=== PATIENT | female | born 1940 | race Caucasian/White ===

== ENCOUNTER 2016-12-27 16:54 | Emergency (ER) | payer MEDICARE, OTHER ==
[2016-12-27] MEDS ORDERED: HYDROcod/ACETAM 5/325 MG TABLET PO STA (17:11)
--- NOTE | 2016-12-27 17:14 | ED Physician Documentation ---
History of Present Illness - Stated complaint Stated Complaint: L KNEE PAIN - Chief complaint Chief Complaint: Ext Problem - History obtained from History obtained from: Patient, Family - History of Present Illness Timing: How many days ago (3) Pain level max: 9 Pain level now: 9 Improved by: rest Worsened by: walking - Additonal information Additional information: Patient is a 76-year-old female with left knee pain for the past 3 days. Worse with walking. Better with rest and ice. had similar symptoms approximately 10 years ago when she was in [place] and was told she needed a knee replacement. has not had any issues with the knee since that time. Has been taking Aleve without relief. Does not use a cane or walker. Does not recall any recent injuries. Review of Systems Constitutional: denies: Fever, Chills Ears: denies: Ear pain Nose: denies: Rhinorrhea / runny nose, Congestion Cardiac: denies: Chest pain / pressure Respiratory: denies: Cough GI: denies: Abdominal Pain, Nausea, Vomiting, Diarrhea Skin: denies: Rash Musculoskeletal: denies: Neck pain, Back pain Neurologic: denies: Headache PD PAST MEDICAL HISTORY - Past Medical History Past Medical History: Yes Respiratory: Other GI: GERD Other Past Medical History: PE, RSD - Past Surgical History Past Surgical History: Yes Derm: Skin cancer surgery - Present Medications Home Medications: Ambulatory Orders Medication Instructions Recorded Confirmed Aspirin 81 mg PO DAILY 12/27/16 12/27/16 Hydrocodone/Acetaminophen 1 - 2 each PO Q6H PRN #20 tablet 12/27/16 [Hydrocodon-Acetaminophen 5-325] Pantoprazole [Protonix] 40 mg PO BID 12/27/16 12/27/16 - Allergies Allergies/Adverse Reactions: Allergies Allergy/AdvReac Type Severity Reaction Status Date / Time ampicillin Allergy Rash Verified 12/27/16 16:58 clindamycin AdvReac Nausea Verified 12/27/16 16:58 - Social History Does the pt smoke?: No Smoking Status: Never smoker PD ED PE NORMAL - Vitals Vital signs reviewed: Yes - General General: Alert and oriented X 3, No acute distress, Well developed/nourished - HEENT HEENT: PERRL, Moist mucous membranes - Neck Neck: Supple, no meningeal sign - Cardiac Cardiac: RRR, Strong equal pulses - Respiratory Respiratory: No respiratory distress, Clear bilaterally - Abdomen Abdomen: Soft, Non tender, Non distended - Derm Derm: Warm and dry - Extremities Extremities: No deformity, No tenderness to palpate, Other (L knee - limited ROM 2/2 pain. mild swelling, no bony tenderness. no erythema, no warmth. NVI. ACL, MCL, PCL, LCL are intact.) - Neuro Neuro: Alert and oriented X 3 - Psych Psych: Normal mood, Normal affect Results - Vitals Vitals: Vital Signs - 24 hr 12/27/16 16:56 Temperature 36.7 C Heart Rate 109 H Respiratory 16 Rate Blood Pressure 124/70 O2 Saturation 98 Oxygen O2 Source Room air Departure - Departure Disposition: Home, Self Care Clinical Impression: Osteoarthritis Qualifiers: Osteoarthritis location: knee Osteoarthritis type: unspecified Laterality: left Qualified Code(s): M17.12 - Unilateral primary osteoarthritis, left knee Condition: Good Instructions: ED Degenerative Joint Disease Follow-Up: your,doctor in 1 week for further eval [Other] Prescriptions: Hydrocodone/Acetaminophen [Hydrocodon-Acetaminophen 5-325] 1 - 2 each PO Q6H PRN #20 tablet PRN Reason: pain Comments: Return if you worsen. Use the walker to help you get around. Elevate and ice your leg. You have severe arthritis in the left knee and will likely need a knee replacement when you return home. Do not drink alcohol or drive while on narcotic pain medicine. Note that many narcotic pain relievers also contain tylenol/acetaminophen. Please ensure that your total dose of acetaminophen from all sources does not exceed 3 grams (3000mg) per day. You may constipated on this medication, take a stool softener such as "Colace" twice a day while you are on it. Also recommend a rteb-rzw-erwfami laxative such as senna or MiraLAX any day that you do not have a bowel movement. If you received narcotic pain medication in the emergency department, do not drive or operate machinery for the next 24 hours.
[2016-12-27] MEDS ORDERED: HYDROcod/ACETAM 5/325 MG TABLET ONE (17:16)
--- NOTE | 2016-12-27 18:13 | XRAY Preliminary Report ---
Exam: XR Knee 3 View LT IMPRESSION: 1. Tricompartment left knee arthritis most severely affecting the medial compartment. 2. No dislocation. Moderate knee joint effusion. 3. No fracture. [facility] SITE ID: [id number]
--- NOTE | 2016-12-27 18:21 | XRAY Report ---
EXAM: LEFT KNEE RADIOGRAPHY EXAM DATE: 12/27/2016 06:07 p.m. CLINICAL HISTORY: Left knee pain, no known injury. COMPARISON: None. TECHNIQUE: 3 views. FINDINGS: Bones: Normal. No fractures or bone lesions. Joints: Marked left medial, mild to moderate left lateral and mild left patellofemoral compartment reji int space narrowing, osteophytosis with subchondral sclerosis. Chondrocalcinosis is noted. Moderate k nee joint effusion. No dislocation. Soft Tissues: Normal. No soft tissue swelling. IMPRESSION: 1. Tricompartment left knee arthritis most severely affecting the medial compartment. 2. No dislocation. Moderate knee joint effusion. 3. No fracture. [facility] Referring Provider Line: [phone] SITE ID: [id number]
[2016-12-27] MEDS ORDERED: DEXAMETHASONE 10 MG/ML VIAL PO STA (18:29)
[2016-12-27] MEDS ORDERED: DEXAMETHASONE 10 MG/ML VIAL ONE (18:43)
[2016-12-27 19:02] VITALS: BP 107/68
[2016-12-27] MEDS ORDERED: HYDROcod/ACET 5/325 Prepack 6 PO ONE ×2 (19:02→19:09)
== END 2016-12-27 19:18 | disposition home or self-care (01) ==
LOC: ED 16:54
DX: M17.12 Unilateral primary osteoarthritis, left knee (principal); K21.9 Gastro-esophageal reflux disease without esophagitis; Z86.711 Personal history of pulmonary embolism; Z79.82 Long term (current) use of aspirin
CPT/HCPCS: 73562; 99283; A9270

== ENCOUNTER 2018-08-12 11:32 | Outpatient (CLI) | payer MEDICARE, OTHER ==
[2018-08-12] MEDS ORDERED: IOVERSOL 320 100 ML VIAL IVP ONE ×2 (11:50→11:56)
--- NOTE | 2018-08-12 15:56 | CT Report ---
Reason: INTRA-ABDOMINAL AND PELVIC SWELLING,MASS AND LUMP, Procedure Date: 08/12/2018 Accession Number: [id number] / [id number] Procedure: CT - Abdomen/Pelvis W CPT Code: FULL RESULT: EXAM: CT ABDOMEN AND PELVIS EXAM DATE: 08/12/2018 01:35 PM. CLINICAL HISTORY: Intra-abdominal and pelvic swelling, mass and lump. COMPARISONS: None. TECHNIQUE: Routine helical CT imaging was performed through the abdomen and pelvis. IV contrast: 100 mL Optiray 320. Enteric contrast: Yes. Reconstructions: Coronal and sagittal. In accordance with CT protocol optimization, one or more of the following dose reduction techniques were utilized for this exam: automated exposure control, adjustment of mA and/or KV based on patient size, or use of iterative reconstructive technique. FINDINGS: Lung Bases: Hiatal hernia. Liver: Normal. No masses. Gallbladder/Bile Ducts: Prominence of the extrahepatic biliary ductal system as well as of the pancreatic duct without definite mass identified. No evidence of cholecystitis. Spleen: Splenule. Variant of normal. Pancreas: Prominent pancreatic duct as described above. No definite mass detected. Suggestion of pancreatic divisum. Adrenal Glands: Normal. Kidneys: Normal. No masses or hydronephrosis. Peritoneal Cavity/Bowel: Diverticulosis without diverticulitis, pancolonic. No free fluid, free air or adenopathy. No masses or acute inflammatory process. The appendix is well visualized and normal. Pelvic Organs: Markedly distended urinary bladder. Vasculature: No aneurysms or other significant abnormality. Bones: No aggressive osseous lesion. Other: None. IMPRESSION: Marked distention of the urinary bladder. Hiatal hernia. Pancolonic diverticulosis without focal diverticulitis detected. Prominence of the extrahepatic biliary system and possible pancreas divisum without definite mass detected. Recommendations: Correlate bladder distention to postvoid residual and clinical symptoms. Correlate prominence of the extrahepatic biliary system to laboratory values including a lipase and alkaline phosphatase to determine whether MRI with and without contrast with MRCP is warranted for workup. [facility]
== END 2018-08-12 11:33 | disposition home or self-care (01) ==
LOC: DI 11:32
PROVIDERS: ATTEND Nurse Practitioner Family
DX: N32.89 Other specified disorders of bladder (principal); R19.00 Intra-abdominal and pelvic swelling, mass and lump, unspecified site; K44.9 Diaphragmatic hernia without obstruction or gangrene; K57.30 Diverticulosis of large intestine without perforation or abscess without bleeding
CPT/HCPCS: 74177; Q9967

== ENCOUNTER 2018-08-24 14:09 | Outpatient (CLI) | payer MEDICARE, OTHER ==
--- NOTE | 2018-08-24 15:17 | Ultrasound Report ---
Reason: PAIN OF TOE OF LEFT FOOT,PAIN IN LEFT LOWER L, Procedure Date: 08/24/2018 Accession Number: [id number] / [id number] Procedure: US - Duplex Ext Veins Left CPT Code: FULL RESULT: EXAM: LEFT LOWER EXTREMITY VENOUS ULTRASOUND. EXAM DATE: 08/24/2018 03:06 PM. CLINICAL HISTORY: Pain of toe of left foot, pain in left lower leg. COMPARISON: None. TECHNIQUE: Real-time sonographic vascular imaging was performed by the automobile mechanic through the lower extremity utilizing both color-flow and Doppler spectral analysis. Multiple medicare sales representative static images were saved for review. FINDINGS: Common Femoral Vein (CFV): Normal. CFV-GSV Junction: Normal. Profunda Femoral Vein (PFV): Normal. Femoral Vein (FV) Prox: Normal. Femoral Vein (FV) Mid: Normal. Femoral Vein (FV) Dist: Normal. Popliteal Vein: Nonocclusive thrombus. Posterior Tibial Veins: Normal. Peroneal Veins: Not well seen. Other: None. IMPRESSION: Nonocclusive thrombus is seen within the popliteal vein. [facility] The call report notification system was initiated by Dr. Kostas Hutchinson at 03:16 PM on 08/24/2018. The above call report findings were discussed with Dr Knapp by Dr. Kostas Hutchinson at 03:24 PM on 08/24/2018.
--- NOTE | 2018-08-25 10:15 | XRAY Report ---
Reason: PAIN OF TOE OF LEFT FOOT,PAIN IN LEFT LOWER L, Procedure Date: 08/24/2018 Accession Number: [id number] / [id number] Procedure: XR - Foot 3 View LT CPT Code: FULL RESULT: EXAM: LEFT FOOT RADIOGRAPHY EXAM DATE: 08/24/2018 03:29 PM. CLINICAL HISTORY: Pain of toe of left foot, pain in left lower leg. COMPARISON: None. TECHNIQUE: 3 views. FINDINGS: Bones: The bones are qualitatively osteopenic; this limits evaluation for underlying fractures or masses. Intraarticular fracture of the distal aspect of the proximal fifth phalanx, minimally displaced. Joints: Normal. No subluxations. Soft Tissues: Calcifications of the Achilles tendon are partially imaged. IMPRESSION: Osteopenia with little toe fracture. [facility]
== END 2018-08-24 14:10 | disposition home or self-care (01) ==
LOC: DI 14:09
PROVIDERS: ATTEND Nurse Practitioner Family
DX: I82.432 Acute embolism and thrombosis of left popliteal vein (principal); M84.478A Pathological fracture, left toe(s), initial encounter for fracture; M85.872 Other specified disorders of bone density and structure, left ankle and foot

== ENCOUNTER 2019-02-04 09:47 | Outpatient (CLI) | payer MEDICARE, OTHER | END 2019-02-04 09:48 | disposition home or self-care (01) | LOC: DI 09:47 | DX: Z12.31 Encounter for screening mammogram for malignant neoplasm of breast (principal) | CPT/HCPCS: 77063; 77067 ==

== ENCOUNTER 2019-04-12 19:12 | Outpatient (CLI) | payer MEDICARE, OTHER ==
--- NOTE | 2019-04-12 21:05 | Ultrasound Report ---
Reason: PAIN, SWELLING, HX OF DVT Procedure Date: 04/12/2019 Accession Number: [id number] / [id number] Procedure: US - Duplex Ext Veins Left CPT Code: Addended Final Report FULL RESULT: EXAM: LEFT LOWER EXTREMITY VENOUS ULTRASOUND EXAM DATE: 04/12/2019 07:41 PM. CLINICAL HISTORY: PAIN, SWELLING, HX OF DVT. COMPARISON: DUPLEX EXT VEINS LEFT 08/24/2018 2:16 PM. TECHNIQUE: Real-time sonographic vascular imaging was performed by the pattern drum maker through the lower extremity utilizing both color-flow and Doppler spectral analysis. Multiple client representative static images were saved for review. FINDINGS: Common Femoral Vein (CFV): Normal. CFV-GSV Junction: Normal. Profunda Femoral Vein (PFV): Normal. Femoral Vein (FV) Prox: Normal. Femoral Vein (FV) Mid: Normal. Femoral Vein (FV) Dist: Normal. Popliteal Vein: Normal. Posterior Tibial Veins: Not identified. Peroneal Veins: Not identified. Contralateral Side CFV: Normal. Other: Nonocclusive clot and greater saphenous vein in a small segment above the knee. Occlusive thrombosis in the greater saphenous vein below the knee to the mid calf. Likely 3.8 cm popliteal cyst at the posterior aspect of the left knee. IMPRESSION: Thrombosis of the greater saphenous vein. [facility] The call report notification system was initiated by Dr. Leonardo Green at 09:04 PM on 04/12/2019. ADDENDUM: 04/12/19 21:36 The above call report findings were discussed with Dr Knapp by Dr. Leonardo Green at 09:08 PM on 04/12/2019.
== END 2019-04-12 19:13 | disposition home or self-care (01) ==
LOC: DI 19:12
PROVIDERS: ATTEND Nurse Practitioner Family
DX: I82.812 Embolism and thrombosis of superficial veins of left lower extremity (principal)

== ENCOUNTER 2019-05-16 09:28 | Outpatient (CLI) | payer MEDICARE, OTHER ==
--- NOTE | 2019-05-16 13:12 | MRI Report ---
Reason: BILATERAL SHOULDER PAIN Procedure Date: 05/16/2019 Accession Number: [id number] / [id number] Procedure: MRI - Shoulder RT W/O CPT Code: Final Report FULL RESULT: EXAM: RIGHT SHOULDER MRI WITHOUT CONTRAST EXAM DATE: 05/16/2019 10:06 AM. CLINICAL HISTORY: Bilateral shoulder pain. COMPARISON: None. TECHNIQUE: Multiplanar, multisequence T1-weighted and fluid-sensitive sequences of the shoulder without contrast. Other: None. FINDINGS: Acromioclavicular Region: The acromion is type II unipartite. AC joint shows moderate osteoarthritic change. Some synovial hypertrophic change is also seen. The coracoacromial and coracoclavicular ligaments are intact. Bursal fluid is present. Glenohumeral Region: Significant superior subluxation of the humeral head with pseudoarticulation with the undersurface of the acromion. Moderate size joint effusion. Some broad grade III chondromalacia on both sides of the glenohumeral joint. The glenohumeral ligaments and joint capsule are unremarkable. Bone Marrow: There is some minimal edema in the anterior aspect of the proximal humeral head with a small subchondral cyst seen at the lesser tuberosity. Labrum: Anterior labrum shows a small amount of undermining, no convincing evidence for full-thickness tear, however. Series 401 image 15. Musculature/Rotator Cuff: Full-thickness chronic longstanding supraspinatus and infraspinatus tears, with retraction proximal to the bony glenoid. Study also shows normal-appearing teres minor. Additionally, there is some increased T2 signal and thickening of the anterior portion of the subscapularis. Significant proximal muscle belly fatty atrophy from the supraspinatus and infraspinatus portions of the rotator cuff. Biceps Tendon: Full-thickness tear of the long head of biceps tendon with distal retraction. Other: The subcutaneous tissues are unremarkable. IMPRESSION: 1. Type II unipartite undersurface osseous acromion shape. Moderate AC joint osteoarthritic change. Some bursal fluid is present. Significant superior subluxation of the humeral head, with pseudoarticulation of the undersurface of the acromion. 2. This is secondary to chronic full-thickness tears of the supraspinatus and infraspinatus tendons with retraction proximal to the bony glenoid, significant fatty atrophy of muscle bundles. Also noted is tendinitis of the subscapularis, a normal teres minor. 3. Full-thickness tear of long head of biceps tendon with distal retraction. 4. Some undermining of the anterior labrum, no convincing evidence for tear, however. [facility]
--- NOTE | 2019-05-16 13:12 | MRI Report ---
Reason: BILATERAL SHOULDER PAIN Procedure Date: 05/16/2019 Accession Number: [id number] / [id number] Procedure: MRI - Shoulder LT W/O CPT Code: Final Report FULL RESULT: EXAM: LEFT SHOULDER MRI WITHOUT CONTRAST EXAM DATE: 05/16/2019 11:35 AM. CLINICAL HISTORY: Bilateral shoulder pain. COMPARISON: None. TECHNIQUE: Multiplanar, multisequence T1-weighted and fluid-sensitive sequences of the shoulder without contrast. Other: None. FINDINGS: Acromioclavicular Region: The acromion is type II unipartite. AC joint is somewhat thickened, synovial hypertrophic changes are noted. The coracoacromial and coracoclavicular ligaments are intact. Moderate-sided bursal fluid is present. Glenohumeral Region: No subluxation. Moderate-sized joint effusion. The articular cartilage is unremarkable. The glenohumeral ligaments and joint capsule are unremarkable. Bone Marrow: Benign-appearing cystic structure seen in the superior lateral aspect of the humeral head. Labrum: The labrum is unremarkable on this nonarthrographic study. Musculature/Rotator Cuff: Full-thickness tear anterior half of the supraspinatus portion of the rotator cuff. This defect is 1.2 cm from side to side and 1.9 cm from front to back. Remaining posterior 50% of the supraspinatus is thickened and shows increased T2 signal. Infraspinatus is attached, it is thickened and shows increased T2 signal. Teres minor is normal. Subscapularis shows significant thinning and probably related to anterior partial thickness tear. Biceps Tendon: Long head of biceps is torn and retracted distally. Other: The subcutaneous tissues are unremarkable. IMPRESSION: 1. Type II unipartite undersurface osseous acromion shape. AC joint is somewhat thickened, some moderate osteoarthritic changes are present. 2. Moderate-sized glenohumeral joint effusion. 3. Full-thickness tear anterior half of the supraspinatus measures 1.2 x 1.9 cm. Remaining 50% of the supraspinatus is thickened, and shows tendinitis. Tendinitis also is seen at the infraspinatus. Subscapularis shows partial thickness tearing with increased T2 signal. This tear involves the anterior 50% of the tendon. 4. Long head of biceps is torn and distally retracted. [facility]
== END 2019-05-16 09:29 | disposition home or self-care (01) ==
LOC: DI 09:28
PROVIDERS: ATTEND Orthopaedic Surgery
DX: S43.001A Unspecified subluxation of right shoulder joint, initial encounter (principal); S46.111A Strain of muscle, fascia and tendon of long head of biceps, right arm, initial encounter; S46.112A Strain of muscle, fascia and tendon of long head of biceps, left arm, initial encounter; M75.121 Complete rotator cuff tear or rupture of right shoulder, not specified as traumatic; M75.112 Incomplete rotator cuff tear or rupture of left shoulder, not specified as traumatic; M19.011 Primary osteoarthritis, right shoulder; M19.012 Primary osteoarthritis, left shoulder

== ENCOUNTER 2020-02-21 14:45 | Outpatient (CLI) | payer MEDICARE, OTHER ==
--- NOTE | 2020-02-21 15:51 | XRAY Report ---
PROCEDURE: Wrist 3 View LT INDICATIONS: PAIN IN LEFT WRIST TECHNIQUE: 3 views of the wrist were acquired. COMPARISON: None FINDINGS: Bones: Diffuse osteopenia. Status post ORIF of the distal left wrist with volar plate and screw fixa tion. No evidence for hardware loosening or failure. Mild annular cortical contours of the dorsal dis lucina wrist likely related to healed fracture deformities. No definite fracture visualized. Severe dege nerative changes of the left first and second carpometacarpal joints. Moderate degenerative changes o f the proximal carpal row. Degenerative changes of the triscaphe joint. Scapholunate interval appears within normal limits. No suspicious bony lesions. Soft tissues: No suspicious soft tissue calcifications. IMPRESSION: Status post ORIF of the distal left wrist without evidence for hardware loosening or failure. Cortica l irregularity of the dorsal wrist likely related to healed fracture deformities. No definite fractur e visualized. Evaluation is also slightly limited due to diffuse osteopenia. Moderate to severe degenerative changes of the left wrist most pronounced at the first and second car pometacarpal joints. Reviewed by: Myles Card MD on 02/21/2020 3:50 PM PDT Approved by: Myles Card MD on 02/21/2020 3:50 PM PDT Station ID: [id number]
== END 2020-02-21 14:46 | disposition home or self-care (01) ==
LOC: DI 14:45
PROVIDERS: ATTEND Physician Assistant
DX: M19.032 Primary osteoarthritis, left wrist (principal); M85.88 Other specified disorders of bone density and structure, other site

== ENCOUNTER 2020-09-04 08:57 | Outpatient (CLI) | payer MEDICARE, OTHER ==
--- NOTE | 2020-09-05 12:16 | Mammography Report ---
BILATERAL DIGITAL SCREENING MAMMOGRAM 3D/2D: 09/04/2020 CLINICAL: Routine screening. Comparison is made to exams dated: 02/04/2019 mammogram, 02/04/2019 mammogram - [facility], and 06/19/2017 mammogram - [facility]. There are scattered fibroglandular elements in both pb sts. There are benign calcifications in the right breast. No significant masses, calcifications, or other findings are seen in either breast. There has been no significant interval change. IMPRESSION: BENIGN There is no mammographic evidence of malignancy. A 1 year screening mammogram is recommended. This exam was interpreted at Station ID: [id number]. NOTE: For mammograms, a report in lay terms will be sent to the patient. Approximately 15% of breast malignancies will not be visualized mammographically. In the management of a palpable breast mass, a negative mammogram must not discourage biopsy of a clinically suspicious lesion. Electronically Signed By: Sumanth Alvarez M.D. ddp/penrad:09/04/2020 09:39:48 ACR BI-RADS Category 2: Benign Finding(s) 3342F PARENCHYMAL PATTERN: (A) - The breast(s) demonstrate(s) scattered fibroglandular densities. BI-RADS CATEGORY: (2) - 2 RECOMMENDATION: (ANNUAL) - Recommend routine annual screening mammography. [id number] 1 year screening LATERALITY: (B)
== END 2020-09-04 08:58 | disposition home or self-care (01) ==
LOC: DI.S 08:57
PROVIDERS: ATTEND Family Medicine
DX: Z12.31 Encounter for screening mammogram for malignant neoplasm of breast (principal)

== ENCOUNTER 2020-09-06 10:05 | Outpatient (CLI) | payer MEDICARE, OTHER ==
--- NOTE | 2020-09-06 14:37 | DEXA Report ---
PROCEDURE: Dexa Spine and/or Hip INDICATIONS: OSTEOPENIA TECHNIQUE: Dual energy x-ray absorptiometry (DXA) was performed on a kaleo System. Regions measur ed are the AP Spine, femoral neck, and if needed forearm. COMPARISON: None. FINDINGS: Lumbar Spine: Bone Mineral Density 1.025 g/cm/cm,T score -1.2, osteopenia. Left Femoral Neck: Bone Mineral Density 0.670 g/cm/cm, T score -2.7, osteoporosis (T score greater or equal to -1.0: NORMAL) (T score from -1.1 to -2.4: OSTEOPENIA) (T score less than or equal to -2.5 to: OSTEOPOROSIS) Impression: OSTEOPOROSIS. Patient is at high risk for fracture. Patients with diagnosis of osteoporosis or osteopenia should have regular bone mineral density assess ment. For those eligible for Medicare, routine testing is allowed once every 2 years. Testing frequ ency can be increased for patients who have rapidly progressing disease or for those who are receivin g medical therapy to restore bone mass. Reviewed by: Myles Card MD on 09/06/2020 2:36 PM PDT Approved by: Myles Card MD on 09/06/2020 2:36 PM PDT Station ID: [id number]
== END 2020-09-06 10:06 | disposition home or self-care (01) ==
LOC: DI 10:05
PROVIDERS: ATTEND Family Medicine
DX: M81.0 Age-related osteoporosis without current pathological fracture (principal)

== ENCOUNTER 2020-11-13 08:00 | Outpatient (CLI) | payer MEDICARE, OTHER ==
--- NOTE | 2020-11-13 15:48 | XRAY Report ---
PROCEDURE: Knee 3 View LT INDICATIONS: CONTUSION OF LEFT KNEE TECHNIQUE: 3 views of the left knee(s) were acquired. COMPARISON: None. FINDINGS: Bones: No fractures or dislocations. No suspicious bony lesions. Moderate tricompartmental osteoar thritis with marginal osteophytosis and joint space narrowing. Soft tissues: Small nonspecific superficial joint effusion. Chondrocalcinosis. IMPRESSION: No fracture. No acute osseous lesion. If there persistent symptoms or continued clinical concern for pathology, then repeat plain film radiographs (7-10 days) or advanced imaging (CT, MR, bone scan) marleny uld be considered for further evaluation. Reviewed by: Abimbola Alfonso MD, PhD on 11/13/2020 3:47 PM PDT Approved by: Abimbola Alfonso MD, PhD on 11/13/2020 3:47 PM PDT Station ID: [id number]
--- NOTE | 2020-11-13 17:54 | XRAY Report ---
PROCEDURE: Ankle 3 View LT INDICATIONS: SPRAIN OF LEFT ANKLE TECHNIQUE: 3 views of the ankle were acquired. COMPARISON: Left foot dated 08/24/2018 FINDINGS: Bones: No fractures or dislocations. Ankle mortise is normally aligned. No suspicious bony lesions . Soft tissues: No tibiotalar joint effusion. Achilles tendon appears normal. Diffuse soft tissue ed muriel. IMPRESSION: Diffuse soft tissue edema. No evidence acute bony abnormality of the left ankle. If clinical suspicion and/or symptoms persist, further assessment with repeat plain films or advanced imaging (e.g., CT, MRI, or bone scan) may be helpful for further assessment. Reviewed by: Rustam Long MD on 11/13/2020 5:53 PM PDT Approved by: Rustam Long MD on 11/13/2020 5:53 PM PDT Station ID: [id number]
== END 2020-11-13 23:59 | disposition home or self-care (01) ==
LOC: DI.S 08:00
PROVIDERS: ATTEND Emergency Medicine
DX: S93.412A Sprain of calcaneofibular ligament of left ankle, initial encounter (principal); S80.02XA Contusion of left knee, initial encounter; M17.12 Unilateral primary osteoarthritis, left knee; M11.262 Other chondrocalcinosis, left knee

== ENCOUNTER 2020-11-20 14:52 | Outpatient (CLI) | payer MEDICARE, OTHER ==
--- NOTE | 2020-11-22 13:19 | XRAY Report ---
PROCEDURE: Ankle 3 View LT INDICATIONS: SPRAIN OF LT ANKLE TECHNIQUE: 3 views of the ankle were acquired. COMPARISON: Prior left ankle series dated November 13, 2020 FINDINGS: Bones: Minimally laterally displaced distal fibular metaphyseal fracture with associated soft tissue swelling.. Ankle mortise is normally aligned. No suspicious bony lesions. Soft tissues: No tibiotalar joint effusion. Achilles tendon appears normal. Diffuse soft tissue sw elling with mottled appearance. IMPRESSION: Minimally displaced distal fibular metaphyseal fracture. Reviewed by: SIMBA Brown on 11/22/2020 1:18 PM PDT Approved by: Yash Calhoun on 11/22/2020 1:18 PM PDT Station ID: [id number]
== END 2020-11-20 14:53 | disposition home or self-care (01) ==
LOC: DI.S 14:52
PROVIDERS: ATTEND Family Medicine
DX: S82.832A Other fracture of upper and lower end of left fibula, initial encounter for closed fracture (principal)

== ENCOUNTER 2023-11-12 10:03 | Outpatient (CLI) | payer MEDICARE, OTHER ==
--- NOTE | 2023-11-12 10:40 | XRAY Report ---
PROCEDURE: Foot 3+V LT (Weight Bearing) INDICATIONS: LEFT FOOT PAIN TECHNIQUE: 3 views of the foot were acquired. COMPARISON: 08/24/2018 FINDINGS: Bones: Diffuse osteopenia. Mild scattered degenerative changes. Borderline pes planus alignment. Plan tar calcaneal enthesopathy. No acute displaced fracture identified. Soft tissues: Distal Achilles calcifications. IMPRESSION: Borderline pes planus alignment and mild scattered degenerative changes. Plantar enthesopathy and dis lucina Achilles calcifications. If there is high concern for further derangement, consider MRI evaluation. Reviewed by: Michael Kincaid MD on 11/12/2023 10:39 AM PDT Approved by: Michael Kincaid MD on 11/12/2023 10:39 AM PDT Station ID: [id number]
== END 2023-11-12 10:04 | disposition home or self-care (01) ==
LOC: DI 10:03
PROVIDERS: ATTEND Podiatrist
DX: M19.072 Primary osteoarthritis, left ankle and foot (principal); M21.42 Flat foot [pes planus] (acquired), left foot; M77.52 Other enthesopathy of left foot and ankle; M65.872 Other synovitis and tenosynovitis, left ankle and foot

== ENCOUNTER 2023-11-26 12:56 | Outpatient (CLI) | payer MEDICARE, OTHER ==
--- NOTE | 2023-11-26 17:03 | MRI Report ---
Foot LT WO CLINICAL HISTORY: 83 years of age, Female, LEFT FOOT PAIN. COMPARISON: None Technique: Multisequence, multiplanar MRI of the left foot was performed without contrast. FINDINGS: Tendons: Flexor and extensor tendons are intact with normal course, caliber and signal. Muscles: Normal muscle bulk and signal intensity. Ligaments: Lisfranc and radial collateral ligaments are intact. Interosseous spaces: No intermetatarsal bursitis. Plantar Fascia: Normal. Osseous and Cartilaginous: Mild degenerative change of the tarsometatarsal joint, with subchondral cy stic changes and marrow edema, most pronounced at the second and third tarsometatarsal joint. Minimal ly impacted fracture of the fourth proximal phalangeal neck, acute. Additional nondisplaced fracture of the fifth proximal phalanx proximal diaphysis, with marked marrow edema, acute. Mild marrow edema of the tibial hallucal sesamoid, likely representing sesamoiditis. No avascular nec rosis of the hallucal sesamoid. Miscellaneous: Subcutaneous edema of the dorsal foot. IMPRESSION: 1.Minimally impacted fracture of the fourth proximal phalangeal neck, acute. 2.Nondisplaced fracture of the fifth proximal phalanx proximal diaphysis, acute. 3.Tibial hallucal sesamoiditis. 4.Subcutaneous edema of the dorsal foot. Reviewed by: Mindy Cruz MD on 11/26/2023 5:01 PM PDT Approved by: Mindy Cruz MD on 11/26/2023 5:01 PM PDT Station ID: [id number]
== END 2023-11-26 12:57 | disposition home or self-care (01) ==
LOC: DI 12:56
PROVIDERS: ATTEND Podiatrist
DX: S92.512A Displaced fracture of proximal phalanx of left lesser toe(s), initial encounter for closed fracture (principal); S92.515A Nondisplaced fracture of proximal phalanx of left lesser toe(s), initial encounter for closed fracture; M25.872 Other specified joint disorders, left ankle and foot; R93.89 Abnormal findings on diagnostic imaging of other specified body structures